=== PATIENT | male | born 1985 | race Hispanic/Latino ===

== ENCOUNTER 2017-08-28 17:31 | Emergency (ER) | payer BC ==
--- NOTE | 2017-08-28 18:08 | ED PDOC ---
HPI: Chest Pain Time Seen by Provider: 08/28/17 17:52 Chief Complaint (Nursing): Chest Pain Chief Complaint (Provider): Chest tightness History Per: Patient History/Exam Limitations: no limitations Onset/Duration Of Symptoms: Hrs (x6) Current Symptoms Are (Timing): Still Present Quality: Tightness Associated Symptoms: Other (left arm tingling) Additional Complaint(s): Jeff Pelayo is a 32 year old male, with no significant past medical history, who presents to the emergency department for evaluation of substernal chest tightness associated with tingling to left arm onset since noon today. Patient states symptoms occurred while working at a computer. He denies any shortness of breath, nausea or other medical complaints. PMD: None provided. Past Medical History Reviewed: Historical Data, Nursing Documentation, Vital Signs Vital Signs: Last Vital Signs Temp 98.1 F 08/28/17 17:40 Pulse 63 08/28/17 17:40 Resp 18 08/28/17 17:40 BP 132/62 08/28/17 18:50 Pulse Ox 99 08/28/17 19:26 - Medical History PMH: No Chronic Diseases - Surgical History Surgical History: No Surg Hx - Family History Family History: States: [place] (Father at age 45) - Home Medications Home Medications: Ambulatory Orders Medication Instructions Recorded Non-Formulary 1 ea .ROUTE Q6 #1 ea 08/28/17 - Allergies Allergies/Adverse Reactions: Allergies Allergy/AdvReac Type Severity Reaction Status Date / Time No Known Allergies Allergy Verified 08/28/17 17:40 Review of Systems ROS Statement: Except As Marked, All Systems Reviewed And Found Negative Cardiovascular: Positive for: Chest Pain (chest tightness) Respiratory: Negative for: Shortness of Breath Gastrointestinal: Negative for: Nausea Neurological: Positive for: Other (left arm tingling) Physical Exam - Reviewed Nursing Documentation Reviewed: Yes Vital Signs Reviewed: Yes - Physical Exam Appears: Positive for: Non-toxic, No Acute Distress Head Exam: Positive for: ATRAUMATIC, NORMAL INSPECTION, NORMOCEPHALIC Skin: Positive for: Normal Color, Warm, Dry Eye Exam: Positive for: Normal appearance, EOMI, PERRL Neck: Positive for: Painless ROM, Supple Cardiovascular/Chest: Positive for: Regular Rate, Rhythm, Chest Non Tender (No chest wall tenderness). Negative for: Murmur Respiratory: Positive for: Normal Breath Sounds. Negative for: Respiratory Distress Gastrointestinal/Abdominal: Positive for: Normal Exam, Soft. Negative for: Tenderness Back: Positive for: Normal Inspection Extremity: Positive for: Normal ROM (upper and lower extremities). Negative for : Deformity, Swelling Neurologic/Psych: Positive for: Alert, Oriented. Negative for: Motor/Sensory Deficits - Laboratory Results Result Diagrams: 08/28/17 18:15 08/28/17 18:15 - ECG O2 Sat by Pulse Oximetry: 99 (RA) Pulse Ox Interpretation: Normal Medical Decision Making Medical Decision Making: Time: 17:52 Initial Plan: --EKG --CMP --Troponin I --CBC w/ differential --Chest two views (PA/LAT) [RAD] --Aspirin 325mg PO --Reevaluation 24 hr obs discussed with pt prefersd to f/u outpt. Will give referal for outpt stress test and cardiology f/u. Advised return to ED if chest pain recurs. ----- Scribe Attestation: Documented by Mihir Miller, acting as a scribe for Gurdeep Kemp MD. Provider Scribe Attestation: All medical record entries made by the Scribe were at my direction and personally dictated by me. I have reviewed the chart and agree that the record accurately reflects my personal performance of the history, physical exam, medical decision making, and the department course for this patient. I have also personally directed, reviewed, and agree with the discharge instructions and disposition. Disposition - Clinical Impression Clinical Impression: Chest pain - Patient ED Disposition Is Patient to be Admitted: No Counseled Patient/Family Regarding: Studies Performed, Diagnosis, Need For Followup, Rx Given - Disposition Referrals: Olivier Jay MD [Staff Provider] - Disposition: Routine/Home Disposition Time: 19:30 Condition: FAIR Prescriptions: Non-Formulary 1 ea .ROUTE Q6 #1 ea Instructions: Chest Pain Forms: [employer] (Greek)
[2017-08-28 18:50] LABS: BASO # 0.1 K/uL (0.0-0.2); EOS # 0.1 K/uL (0.0-0.7); EOS % 2.7 % (0.0-4.0); HEMOGLOBIN 14.5 g/dL (12.0-18.0); LYMPH # 2.1 K/uL (1.0-4.3); MEAN CELL VOLUME 89.7 fl (80.0-94.0); MEAN CORPUSCULAR HEMOGLOBIN 31.9 pg (27.0-31.0); MEAN CORPUSCULAR HGB CONC 35.5 g/dL (33.0-37.0); MONO # 0.6 K/uL (0.0-0.8); MONO % 11.9 % (0.0-10.0); NEUT # 2.3 K/uL (1.8-7.0); NEUT % 44.4 % (50.0-75.0); NRBC % 0.1 % (0.0-0.0); RBC 4.56 Mil/uL (4.40-5.90); RED CELL DISTRIBUTION WIDTH 13.2 % (11.5-14.5); WHITE BLOOD COUNT 5.2 K/uL (4.8-10.8)
--- NOTE | 2017-08-28 18:51 | RAD ---
Date of service: 08/28/2017 HISTORY: Chest pain COMPARISON: No prior. TECHNIQUE: Chest PA and lateral FINDINGS: LUNGS: No acute infiltrate bilaterally. Over penetration is favored over hyperinflation given thin body habitus. Clinically correlate nevertheless. PLEURA: No significant pleural effusion identified. No pneumothorax apparent. CARDIOVASCULAR: Normal. OSSEOUS STRUCTURES: No significant abnormalities. VISUALIZED UPPER ABDOMEN: Normal. OTHER FINDINGS: None. IMPRESSION: No acute infiltrate, pleural effusion or pneumothorax identified. Cardiovascular pattern appears normal. Over penetration is favored over hyperinflation, likely related to thin body habitus. Clinically correlate.
[2017-08-28 19:03] LABS: ALB/GLOB RATIO 1.8 (1.0-2.1); ALBUMIN 4.6 g/dL (3.5-5.0); ALT/SGPT 30 U/L (21-72); AST/SGOT 33 U/L (17-59); BLOOD UREA NITROGEN 19 mg/dl (9-20); CALCIUM 9.6 mg/dL (8.4-10.2); GFR AFRICAN-AMERICAN > 60; GFR NON-AFRICAN AMERICAN > 60
[2017-08-28 19:39] VITALS: BP 119/72; PULSE 57; RESP 12; TEMP 97.3; O2SAT 100
== END 2017-08-28 19:43 | disposition home or self-care (01) ==
LOC: H.ER 17:31
DX: R07.89 Other chest pain (principal)

== ENCOUNTER 2018-04-24 17:32 | Emergency (ER) | payer OTHER, BC ==
[2018-04-24 17:35] VITALS: BMI 25.1
[2018-04-24] MEDS ORDERED: Bacitracin 500 Units/gm Oint Foilpak UD TOP STA (18:06)
[2018-04-24] MEDS ORDERED: Tdap Vaccine 0.5 ml Vial (10-64 yrs) IM ONE ×2 (18:06→18:12)
[2018-04-24] MEDS ORDERED: Bacitracin 500 Units/gm Oint Foilpak UD ONE (18:13)
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
[2018-04-24 20:10] VITALS: BP 113/64; PULSE 63; RESP 18; TEMP 98.6; O2SAT 99
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
== END 2018-04-24 20:08 | disposition home or self-care (01) ==
LOC: H.ER 17:32
DX: T14.8XXA Other injury of unspecified body region, initial encounter (principal); V03.10XA Pedestrian on foot injured in collision with car, pick-up truck or van in traffic accident, initial encounter; Y92.410 Unspecified street and highway as the place of occurrence of the external cause